=== PATIENT | male | born 1965 | race Hispanic/Latino ===

== ENCOUNTER 2023-04-06 21:24 | Emergency (ER) | payer OTHER, SELFPAY ==
--- OUTSIDE RECORDS SUMMARY | 2023-04-06 21:27 | XMS REPORT | Continuity of Care Document ---
:1965 Author Organization [facility] t Address [address] [place] [id number] Care Team Providers Name Role Phone WOLF Attending Clinician Unavailable WOLF Admitting Clinician Unavailable Problems This patient has no known problems. Allergies, Adverse Reactions, Alerts This patient has no known allergies or adverse reactions. Medications This patient has no known medications. Procedures This patient has no known procedures. Encounters Start End Encounter Admission Attending Care Care Encounter Source Date/Time Date/Time Type Type Clinicians Facility Department ID 2023-03-18 Outpatient RTIUW ADELITA [id number] [facility] 11:44:23 0729 [facility] 2022-03-18 2022-03-18 Outpatient DALY KING [address] [place] 00:00:00 00:00:00 ADINA [id number] [facility] Program Results This patient has no known results.
[2023-04-06] MEDS ORDERED: IBUPROFEN 400 MG TAB ONE (23:49)
[2023-04-07 00:11] LABS: Absolute Lymphocytes (CBC) 2.4 K/uL (0.7-4.9); Hematocrit 37.7 % (39.6-49.0); Lymphocytes % 30.3 % (15.3-44.8); MCV 85.7 fL (80-100); MPV 8.1 fL (7.6-11.3); Platelets 359 thou/uL (152-406)
[2023-04-07 00:17] LABS: Potassium 3.4 mEq/L (3.5-5.1)
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
[2023-04-07] MEDS ORDERED: POTASSIUM 25 MEQ EFFERV TAB ONE (02:52)
[2023-04-07 03:14] VITALS: TEMP 97.5
[2023-04-07 03:15] VITALS: O2SAT 99
[2023-04-07 03:16] VITALS: BP 133/67
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
== END 2023-04-07 02:50 | disposition home or self-care (01) ==
LOC: ER 21:24
DX: M54.2 Cervicalgia (principal); M54.9 Dorsalgia, unspecified; M25.562 Pain in left knee; M25.552 Pain in left hip; M25.551 Pain in right hip; F17.210 Nicotine dependence, cigarettes, uncomplicated
CPT/HCPCS: 85025; 80048; 36415; 86900; 86850; 86901; 70450; 72125; 71260; 74177; 73562; 99284; Q9967